=== PATIENT | male | born 1960 | race Caucasian/White ===

== ENCOUNTER 2017-03-02 21:42 | Inpatient (IN) | payer BC, OTHER ==
[~2017-03-02] VITALS: Ht 182.9 cm; Wt 106.4 kg
[~2017-03-02 21:42] MED LIST: AMLO-218 PO; ASPI81TA3 PO; CLOP75TA27 PO; TIOT18CA IH
[2017-03-02] MEDS ORDERED: ASPIRIN 325 MG TAB PO STA (21:59)
[2017-03-02 22:32] LABS: ADD SCAN DIFF NO
[2017-03-02] MEDS ORDERED: LANT3I SC (22:33)
[2017-03-02 22:36] LABS: BASOPHIL # 0.1 10^3/ul (0.0-0.1); BASOPHILS % 0.7 % (0.0-2.0); EOSINOPHILS # 0.2 10^3/ul (0.0-0.5); EOSINOPHILS % 2.5 % (0.0-7.0); HEMATOCRIT 40.1 % (42.0-52.0); HEMOGLOBIN 13.3 g/dl (14.0-18.0); LYMPHOCYTES # 2.9 10^3/ul (0.8-2.9); LYMPHOCYTES % 39.1 % (15.0-51.0); MEAN CORPUSCULAR HEMOGLOBIN 31.1 pg (29.0-33.0); MEAN CORPUSCULAR HGB CONC 33.2 g/dl (32.0-37.0); MEAN CORPUSCULAR VOLUME 93.9 fl (82.0-101.0); MEAN PLATELET VOLUME 9.8 fl (7.4-10.4); MONOCYTE # 0.7 10^3/ul (0.3-0.9); MONOCYTES % 9.3 % (0.0-11.0); NEUTROPHIL # 3.5 10^3/ul (1.6-7.5); NEUTROPHILS % 47.7 % (39.0-77.0); PLATELET COUNT 258 10^3/UL (140-415); RED BLOOD COUNT 4.27 10^6/ul (4.70-6.10); RED CELL DISTRIBUTION WIDTH 13.8 % (11.5-14.5); WHITE BLOOD COUNT 7.3 10^3/ul (4.8-10.8)
--- NOTE | 2017-03-02 22:53 | RADRPT ---
PROCEDURE: XR Chest. CLINICAL INDICATION: Chest pain TECHNIQUE: Single frontal chest x-ray. COMPARISON: 05/25/2014 FINDINGS: Benign chronic changes are seen scattered throughout the lungs. Heart size is enlarged. Mild centr al vascular congestion is seen. Left chest single lead defibrillator is noted. There is no evidenc e for pneumothorax. The surrounding osseous structures are unremarkable. IMPRESSION: 1. Cardiomegaly with single lead left chest defibrillator. 2. Mild central vascular congestion. 3. Benign chronic changes scattered throughout the lungs. RPTAT: HMJB .Giovanni Wright MD, Date Time Electronically viewed and signed by .Giovanni Wright MD, on 03/02/2017 22:53 .B/
[2017-03-02] MEDS ORDERED: NITROGLYCERIN (SL) 0.4 MG TAB SL ONE (23:00)
[2017-03-02 23:05] LABS: INR 1.05; PROTIME 13.7 Sec (12.2-14.2); PT RATIO 1.1
[2017-03-02 23:12] LABS: ANION GAP 10 (8-16); BLOOD UREA NITROGEN 22 mg/dl (7-20); CALCIUM 9.6 mg/dl (8.4-10.2); CARBON DIOXIDE 23 mmol/L (21-31); CHLORIDE 107 mmol/L (97-110); GLUCOSE 113 mg/dl (70-220); POTASSIUM 4.1 mmol/L (3.5-5.1); SODIUM 136 mmol/L (135-144)
[2017-03-02 23:24] LABS: TROPONIN-I < 0.012 ng/ml (0.00-0.12)
[2017-03-03] VITALS (11 sets, daily range): BP systolic 100–172; BP diastolic 56–102; PULSE 70–87; RESP 18–19; Ht 182.9 cm; Wt 106.4 kg
[2017-03-03] MEDS ORDERED: morphine 4 MG/ML VIAL IV STA (00:26)
--- NOTE | 2017-03-03 03:22 | ERA ---
ER Documentation Chief Complaint Date/Time DATE: 03/03/17 TIME: 03:19 Chief Complaint CP (PRESSURE) X 3 HRS, REPRODUCEABLE W/COUGH (6 MONTHS) HPI 48-year-old male with a history of 3 stents, ICD, previous heart attack presents with pressure-like left-sided chest pressure 3 hours coming by shortness of breath. No radiation no nausea and vomiting. Pain is worse when he takes a deep breath or pushes on it. ROS All systems reviewed and are negative except as per history of present illness. Medications Home Meds Reported Medications Insulin Glargine* (Lantus*) 100 Unit/Ml Soln, SC DAILY, #1 VIAL 03/02/17 Tiotropium [place]* (Spiriva*) 18 Mcg Cap.w.dev, 1 INH IH BID, EA 05/23/14 Clopidogrel Bisulfate (Clopidogrel) 75 Mg Tablet, 75 MG PO DAILY, TAB 05/23/14 Aspirin (Aspirin) 81 Mg Chew, 81 MG PO DAILY, TAB.CHEW 05/23/14 Amlodipine Besylate* (Norvasc*) 10 Mg Tablet, 10 MG PO DAILY 02/09/12 Allergies Allergies: Coded Allergies: No Known Allergy (Unverified , 05/22/14) PMhx/Soc History of Surgery: Yes (AICD 2 MOS AGO) Anesthesia Reaction: No Hx Neurological Disorder: Yes Hx Respiratory Disorders: No Hx Cardiac Disorders: Yes (hx mi 1987 WITH 3 STENTS, HTN, HI CHO) Hx Psychiatric Problems: No Hx Miscellaneous Medical Probl: Yes (GERD, DM1) Hx Alcohol Use: Yes (occassional) Hx Substance Use: No Hx Tobacco Use: Yes (1 pack/day QUIT LAST 01/2014) Smoking Status: Former smoker Physical Exam Vitals Vital Signs Date Time Temp Pulse Resp B/P Pulse Ox O2 Delivery O2 Flow Rate FiO2 03/03/17 02:29 69 19 154/98 100 Nasal Cannula 3.0 03/02/17 23:30 71 24 137/83 99 Nasal Cannula 3.0 03/02/17 22:01 Nasal Cannula 3 03/02/17 21:50 98.2 88 17 118/82 96 Physical Exam Const: [] Mild distress appears uncomfortable Head: Atraumatic Eyes: Normal Conjunctiva ENT: Normal External Ears, Nose and Mouth. Neck: Full range of motion..~ No meningismus. Resp: Clear to auscultation bilaterally Cardio: Regular rate and rhythm, no murmurs Abd: Soft, non tender, non distended. Normal bowel sounds Skin: No petechiae or rashes Back: No midline or flank tenderness Ext: No cyanosis, or edema, reproducible chest pain on palpation of less chest Neur: Awake and alert and oriented 3, no focal deficits Psych: Normal Mood and Affect Result Diagram: 03/02/17222403/02/175 Results 24 hrs Laboratory Tests Test 03/02/17 22:25 White Blood Count 7.310^3/ul Red Blood Count 4.2710^6/ul Hemoglobin 13.3g/dl Hematocrit 40.1% Mean Corpuscular Volume 93.9fl Mean Corpuscular Hemoglobin 31.1pg Mean Corpuscular Hemoglobin Concent 33.2g/dl Red Cell Distribution Width 13.8% Platelet Count 09835^3/UL Mean Platelet Volume 9.8fl Neutrophils % 47.7% Lymphocytes % 39.1% Monocytes % 9.3% Eosinophils % 2.5% Basophils % 0.7% Nucleated Red Blood Cells % 0.0/100WBC Neutrophils # 3.510^3/ul Lymphocytes # 2.910^3/ul Monocytes # 0.710^3/ul Eosinophils # 0.210^3/ul Basophils # 0.110^3/ul Nucleated Red Blood Cells # 0.010^3/ul Prothrombin Time 13.7Sec Prothrombin Time Ratio 1.1 INR International Normalized Ratio 1.05 Activated Partial Thromboplast Time 31.0Sec Sodium Level 136mmol/L Potassium Level 4.1mmol/L Chloride Level 107mmol/L Carbon Dioxide Level 23mmol/L Anion Gap 10 Blood Urea Nitrogen 22mg/dl Creatinine 0.90mg/dl Glucose Level 113mg/dl Calcium Level 9.6mg/dl Troponin I < 0.012ng/ml Current Medications Medications (Trade) Dose Ordered Sig/Elvira Route PRN Reason Start Time Stop Time Status Last Admin Dose Admin Aspirin (Aspirin) 325 mg ONCE STAT PO 03/02/17 21:59 03/02/17 22:00 DC 03/02/17 22:08 Nitroglycerin (Nitroglycerin (Sl Tab) 0.4 Mg) 1 tab ONCE ONCE SL 03/02/17 23:00 03/02/17 23:01 DC Morphine Sulfate (morphine) 4 mg ONCE STAT IV 03/03/17 00:26 03/03/17 00:27 DC 03/03/17 00:46 Procedures/MDM 56-year-old male with multiple risk factors with ongoing chest pain is temporarily relieved by nitroglycerin. Patient also has T-wave inversions in inferolateral leads of his EKG. Patient has not had any testing for the last 2 years since he was admitted for acute coronary syndrome and states that his doctor has been meaning to get him to take a stress test. Was given a 325 mg aspirin as well as 2 nitroglycerin tabs which temporarily helped the pain. His ongoing pain was given 4 mg of morphine which helped that the pain. Believe the patient is high risk for acute coronary syndrome and will be admitted for trending of his troponins as well as advanced cardiac testing. I spoke with who will be admitting EKG interpretation: Normal sinus rhythm rate of 84, T-wave inversions in inferolateral leads, normal axis. fire protection designer interpretation: Normal sinus rhythm without arrhythmia Chest x-ray interpretation: I see no acute process, no widened mediastinum, no pneumothorax, no diffuse pulmonary edema, no fracture Departure Diagnosis: Primary Impression: Chest pain Additional Impression: Acute electrocardiogram changes Condition: Stable TAILUZMA March 03, 2017 03:22
[2017-03-03] MEDS ORDERED: NITROGLYCERIN (SL) 0.4 MG TAB SL PRN (04:30)
[2017-03-03] MEDS ORDERED: ONDANSETRON 4 MG INJ IV PRN (04:30)
[2017-03-03] MEDS ORDERED: ACETAMINOPHEN 325 MG TAB PO PRN (04:30)
[2017-03-03] MEDS ORDERED: morphine 10 MG INJ IM PRN (04:30)
[2017-03-03] MEDS ORDERED: GLUCAGON 1 MG INJ IM PRN (05:00)
[2017-03-03] MEDS ORDERED: DEXTROSE 50% 50 ML SYRINGE IV PRN ×2 (05:00)
[2017-03-03] MEDS ORDERED: GLUCOSE GEL 15 GRAM TUBE PO PRN ×2 (05:00)
[2017-03-03] MEDS ORDERED: GLUCOSE GEL 15 GRAM TUBE BUCCAL PRN (05:00)
[2017-03-03] MEDS: PANTOPRAZOLE (EC) 40 MG TAB PO SCH (06:16)
[2017-03-03 06:42] LABS: ADD SCAN DIFF NO
[2017-03-03 06:54] LABS: BASOPHIL # 0.1 10^3/ul (0.0-0.1); BASOPHILS % 0.6 % (0.0-2.0); EOSINOPHILS # 0.3 10^3/ul (0.0-0.5); EOSINOPHILS % 3.4 % (0.0-7.0); HEMATOCRIT 42.7 % (42.0-52.0); HEMOGLOBIN 14.1 g/dl (14.0-18.0); LYMPHOCYTES # 3.3 10^3/ul (0.8-2.9); LYMPHOCYTES % 39.4 % (15.0-51.0); MEAN CORPUSCULAR HEMOGLOBIN 31.1 pg (29.0-33.0); MEAN CORPUSCULAR VOLUME 94.1 fl (82.0-101.0); MEAN PLATELET VOLUME 10.4 fl (7.4-10.4); MONOCYTE # 0.7 10^3/ul (0.3-0.9); MONOCYTES % 8.7 % (0.0-11.0); NEUTROPHILS % 47.4 % (39.0-77.0); PLATELET COUNT 242 10^3/UL (140-415); RED BLOOD COUNT 4.54 10^6/ul (4.70-6.10); RED CELL DISTRIBUTION WIDTH 13.9 % (11.5-14.5); WHITE BLOOD COUNT 8.3 10^3/ul (4.8-10.8)
[2017-03-03 07:08] LABS: TROPONIN-I 0.015 ng/ml (0.00-0.12)
[2017-03-03 07:16] LABS: CK-MB 1.38 ng/ml (0.0-2.4)
[2017-03-03] MEDS: INSULIN ASPART [NOVOLOG] 3 ML PEN SC SCH ×6 (07:46→21:00)
[2017-03-03 07:53] LABS: ALBUMIN 4.1 g/dl (3.3-4.9); ALBUMIN/GLOBULIN RATIO 1.28; BILIRUBIN,INDIRECT 0.1 mg/dl (0-1.1); BILIRUBIN,TOTAL 0.1 mg/dl (0.2-1.3); CALCIUM 9.4 mg/dl (8.4-10.2); CHOL/HDL RATIO 7.2 RATIO; CREATININE 0.8 mg/dl (0.61-1.24); MAGNESIUM 2.1 mg/dl (1.7-2.5); PHOSPHORUS 4.5 mg/dl (2.5-4.9); POTASSIUM 4.2 mmol/L (3.5-5.1); TOTAL PROTEIN 7.3 g/dl (6.1-8.1)
[2017-03-03] MEDS: ASPIRIN 81 MG TAB PO SCH (08:23)
[2017-03-03] MEDS: CLOPIDOGREL 75 MG TAB PO SCH (08:23)
[2017-03-03] MEDS ORDERED: AMLODIPINE 10 MG TAB PO SCH (09:00)
[2017-03-03] MEDS: TIOTROPIUM 18 MCG CAPSULE INHA DEV INH SCH ×2 (09:40→21:26)
[2017-03-03 10:13] LABS: CREATINE KINASE 103 IU/L (23-200)
[2017-03-03 10:38] LABS: TROPONIN-I < 0.012 ng/ml (0.00-0.12)
[2017-03-03] MEDS ORDERED: ALBUTEROL 0.083% (NEB) 2.5 MG/3 ML AMP HHN PRN (11:30)
[2017-03-03] MEDS: ENOXAPARIN 40 MG/0.4 ML SYG SC SCH (11:55)
[2017-03-03] MEDS: SALMETEROL/FLUTICASONE 250/50 INHA INH SCH ×2 (12:22→21:29)
[2017-03-03] MEDS: NICOTINE (21 MG/24 HR) PATCH TRANSDERM SCH (12:23)
[2017-03-03 12:37] LABS: CREATINE KINASE 115 IU/L (23-200)
[2017-03-03 12:58] LABS: TROPONIN-I < 0.012 ng/ml (0.00-0.12)
--- NOTE | 2017-03-03 13:37 | HP ---
DATE OF ADMISSION: 03/03/2017 PREVIOUS RETAIL CUSTOMER SERVICE REPRESENTATIVE: Dr. Pulido. PRIMARY CARE PHYSICIAN: Unknown. CHIEF COMPLAINT ON ADMISSION: Chest pain. HISTORY OF PRESENT ILLNESS: This is a 56-year-old male with previous history of severe coronary artery disease, status post stenting with [address], also status post defibrillator, who recently started smoking again over the past year, noncompliant diabetic versus lack of education, who presented to the emergency department with complaint of chest pain. The patient reports that for the past 2 days he has been having intermittent, sharp chest pain to the left with some shortness of breath. No nausea, no vomiting, no dizziness. No recent increase or noted lower extremity edema. The patient apparently was due for a stress test as an outpatient and it is unclear if he scheduled it or not. His cardiac enzymes were negative x2 so far. EKG in the emergency department showing normal sinus rhythm. He is not paced currently with old inferior infarct and possible lateral ischemia based on the EKG, but no acute ST or T- wave abnormalities of concern. The patient has restarted smoking again a year ago. He smokes up to a pack a day and he his diabetes mellitus is likely to be uncontrolled as he does not seem to understand how to take his insulin. He claims that he checks his blood sugar and takes 1 to 2 units. He does not know how much Lantus he is taking and it looks like the whole family does not understand the difference between long-acting insulin and short-acting insulin. It is unclear if he is compliant with diet even at this point. The daughter also reports that occasionally he has episodes of binge drinking when he just drinks a whole bottle of cognac. He is currently hemodynamically stable and respiratory-cha he is stable. He is afebrile. He denies any previous fevers or acute infection. His chest x-ray is fairly stable with some possible vascular congestion. He has been admitted to telemetry for rule out acute coronary syndrome. Dr. Madrid who is covering for Dr. Pulido will be seeing the patient today. ALLERGIES: NO KNOWN ALLERGIES. PAST MEDICAL HISTORY: 1. Severe coronary artery disease, status post stenting x3. 2. S/p defibrillator . 3. Diabetes mellitus. 4. Morbid obesity. 5. Tobacco use. 6. Alcohol use. 7. Hypertension. PAST SURGICAL HISTORY: 1. Status post abdominal surgery remotely. 2. Status post stent placement. 3. Status post pacemaker. REVIEW OF SYSTEMS: As per HPI. OUTPATIENT MEDICATIONS: 1. Spiriva 1 puff inhaled twice daily. 2. Plavix 75 mg daily. 3. Norvasc 10 mg p.o. daily. 4. Aspirin 81 mg daily. 5. Lantus, unknown dosing. PHYSICAL EXAMINATION VITAL SIGNS: Temperature was 97.8, heart rate of 70s, sinus rhythm, blood pressure 142/85. Patient is satting 100% on 2 liters nasal cannula. GENERAL: He is alert and oriented x4. He is primarily Turkish speaking. He is in no acute distress. The daughter at the bedside and is translating. HEENT: Pupils are equally round and reactive to light. Extraocular muscles are intact. Anicteric sclerae. NECK: No JVD, no thyromegaly noted. HEART: Regular rate and rhythm. No murmur, rubs, or gallops. He is not paced currently. ABDOMEN: Soft, nontender, nondistended. Bowel sounds are present. EXTREMITIES: No edema, clubbing or cyanosis. NEUROLOGIC: Grossly intact. CHEST: He does have a pacemaker in place and there is no wheezing on exam and good air movement. LABORATORY DATA: White blood cell count is 8.3, hemoglobin 14.1, hematocrit 42.7, platelet count of 242. Chemistry with a sodium of 136, potassium 4.2, chloride 108, bicarbonate 21, BUN 19, creatinine 0.80, glucose of 116. A1c of 5.8, calcium of 9.4, phosphorus 4.5, magnesium 2.1, AST 41, ALT 84, alkaline phosphatase 50, troponins less than 0.012 and negative x2 so far. LFTs with cholesterol of 231. BNP of 171. INR 1.05. PT 13.7, PTT 31.0. EKG again showed normal sinus rhythm. Patient is not being paced currently. There are some signs of old infarcts, mainly, but no acute ST or T-wave abnormalities. RADIOLOGICAL DATA: Chest x-ray shows cardiomegaly with a single lead left chest defibrillator, mild central vascular congestion, benign chronic changes scattered throughout the lungs, likely COPD. ASSESSMENT AND PLAN: This is a 56-year-old male with: 1. Chest pain with known coronary artery disease. He apparently actually has a defibrillator in place. Awaiting repeat echocardiogram at this point. Cardiac enzymes have been negative x2 but he is being ruled out. Dr. Madrid will see the patient. He is already on aspirin and Plavix will be continued. He is also on Norvasc for blood pressure control; however, depending on his ejection fraction, he may benefit actually from carvedilol. Follow up further cardiology recommendations. 2. Diabetes mellitus. His A1c came back at 5.8 actually, therefore, we will monitor him closely. I have resumed his Lantus based on his weight at 20 units at bedtime. Will, however, monitor his blood sugar closely. I also placed him on premeal insulin. 3. Hypertension. We will readjust his blood pressure medication depending on the echocardiogram and cardiology recommendation. 4. Tobacco use with probable chronic obstructive pulmonary disease. He is already on Spiriva. We will put him on Advair and add some nebulizers as needed with albuterol. 5. Occasional alcohol overuse. I have counseled the patient. DISPOSITION:Cardiology evaluation pending possible stress test if needed. Prophylaxis. Protonix for GI prophylaxis and will add Lovenox for DVT prophylaxis. Dictated By: CLAY SEGURA/CESILIA Conf#: [id number] DID#: [id number] JUDITH
[2017-03-03] MEDS: ISOSORBIDE MONONITRATE(SR)30 MG TAB PO SCH (15:48)
[2017-03-03] MEDS: METOPROLOL 25 MG TAB PO SCH ×2 (15:48→21:27)
--- NOTE | 2017-03-03 17:00 | RADRPT ---
Echocardiogram Report Patient Name: RAYRAY BENEDICT Gender: Male Date: 1960 Study Date: 03-Mar-2017 Individual Small Group Instructor: NIKUNJ Location: I Ref. Physician: EPIFANIO HERNANDEZ Quality: Technically Difficult Study Procedures: Transthoracic echocardiogram with 2D, M-Mode, and Doppler examination, no subcostal images. Indications: Chest Pain. 2D/M Mode Doppler Measurement Value Normal Ranges Measurement Value Normal Ranges AoR Diam MM 3.3 cm AV Peak Eddy 1.0 m/sec LVIDd 2D 5.0 3.5 - 5.6 cm AV Peak PG 4.1 mmHg LVIDs 2D 3.6 2.1 - 4.1 cm LVOT Peak Eddy 0.7 m/sec LVPWd 2D 1.2 0.6 - 1.1 cm LVOT Peak PG 1.9 mmHg IVSd 2D 1.7 0.6 - 1.1 cm MV E Peak Eddy 0.5 m/sec EDV 2D 116.8 cm3 MV A Peak Dedy 0.8 m/sec ESV 2D 46.4 cm3 MV E/A 0.7 LA Dimen 2D 3.7 2.3 - 4.0 cm MV Decel Time 197 msec MV Decel Ward 3 MV E/A 0.7 PV Peak Eddy 1.2 m/sec PV Peak PG 6.0 mmHg Findings Left Ventricle: Normal left ventricular cavity size. Mild concentric left ventricular hypertrophy. Ejection fraction is visually estimated at 50 %. Tissue Doppler/Mitral Doppler indices are consistent with impaired relaxation (Stage I diastolic dysfunction). E/E`=6. These segments of the LV are akinetic apical septum segment, Apical inferior segment and apical anterior segment. Right Ventricle: Normal right ventricular size. Normal right ventricular systolic function. Linear artifact in right ventricle suggestive of catheter, pacer lead, or ICD lead. Left Atrium: The left atrium is normal in size. Right Atrium: The right atrium is normal in size. Atrial Septum: Not well visualized. Mitral Valve: Normal appearance and function of the mitral valve with trace physiologic regurgitation. Aortic Valve: Normal appearance of the aortic valve. No significant aortic stenosis or insufficiency. Tricuspid Valve: Tricuspid valve not well visualized. No evidence of obvious tricuspid regurgitation. Pulmonic Valve: Normal pulmonic valve appearance. No evidence of pulmonic regurgitation. Pericardium: Normal pericardium with no significant pericardial effusion. Aorta: Normal aortic root. IVC: The IVC is not well visualized. Pulmonary Artery: Normal pulmonary artery size. Conclusions Normal left ventricular cavity size. Mild concentric left ventricular hypertrophy. Ejection fraction is visually estimated at 50 %. Tissue Doppler/Mitral Doppler indices are consistent with impaired relaxation (Stage I diastolic dysfunction). These segments of the LV are akinetic apical septum segment, Apical inferior segment and apical anterior segment. Normal right ventricular size. Normal right ventricular systolic function. Linear artifact in right ventricle suggestive of pacer lead, or ICD lead. Normal appearance and function of the mitral valve with trace physiologic regurgitation. Normal appearance of the aortic valve. No significant aortic stenosis or insufficiency. Tricuspid valve not well visualized. No evidence of obvious tricuspid regurgitation. Normal pericardium with no significant pericardial effusion. Electronically Signed By: Tadeo Madrid 03-Mar-2017 16:59:36 -0700 Patient Name: RAYRAY BENEDICT Study Date: 03-Mar-2017 [id number]
--- NOTE | 2017-03-03 18:18 | CONS ---
DATE OF ADMISSION: 03/03/2017 DATE OF CONSULTATION: 03/03/2017 TYPE OF CONSULTATION: Cardiology. Thank you, Dr. Alex, for cardiology consultation. REASON FOR CONSULTATION: Chest pain. HISTORY OF PRESENT ILLNESS: The patient is a 56-year-old gentleman who comes in with on and off lluvia st pain for the past few days associated with shortness of breath and dry cough. Denies orthopnea, PND. Denies palpitations, dizziness or syncope. The patient has history of coronary artery disease , status post IA, stent, status post stenting in 2011 and 2013. He had a pacemaker implanted in for sick sinus syndrome. Denies abdominal pain, nausea or vomiting. Denies fever, chills or mariama rs. Denies lower extremity edema. PAST MEDICAL HISTORY: Significant for: 1. Coronary artery disease, status post IA, status post stenting in 2011 and 2013. 2. Sick sinus syndrome, status post permanent pacemaker implantation in 2013. 3. Obesity. 4. Hypertension. 5. Diabetes mellitus. 6. Dyslipidemia. 7. Tobacco abuse. 8. Alcohol abuse. PAST SURGICAL HISTORY: Significant for exploratory laparotomy. SOCIAL HISTORY: He is a smoker and takes alcohol. Denies recreational drugs. ALLERGIES: NONE. CURRENT MEDICATIONS: Include: 1. Spiriva. 2. Advair inhaler. 3. Norvasc. 4. Aspirin. 5. Plavix. 6. Lovenox. 7. Nicotine patch. 8. Protonix. 9. Insulin. REVIEW OF SYSTEMS: Is unremarkable except that mentioned in the HPI. PHYSICAL EXAMINATION: VITAL SIGNS: Temperature is 97.8, heart rate of 78, blood pressure 146/92 mmHg, breathing at 18 and saturating 98%. GENERAL: Patient is awake, alert, oriented, in no apparent distress. NECK: No JVD or carotid bruit. CARDIOVASCULAR: Regular rate and rhythm. No murmur, rub or gallop. LUNGS: Clear to auscultation. ABDOMEN: Soft. Bowel sounds are present. There is no organomegaly. EXTREMITIES: No pedal edema. Pedal pulses felt bilaterally. Review of 12-lead EKG shows normal sinus rhythm with a ventricular rate of 75 beats per minute with normal WA, normal QRS and normal QT intervals with nonspecific ST-T wave changes with new T-wave in versions in lead II, III, aVF. Chest x-ray shows cardiomegaly with mild vascular congestion. LABORATORY DATA: WBC 8.3, hemoglobin 14.1, hematocrit 42.7 with a platelet of 242, sodium ____, pot assium 4.2, chloride 108, CO2 of 21, BUN 19, creatinine 0.8 with a BNP 171. Troponin x3 is negative . ASSESSMENT AND PLAN: A 56-year-old gentleman with: 1. Atypical chest pain. 2. History of coronary artery disease, status post myocardial infarction, status post stenting in and 2013. 3. Sick sinus syndrome, status post permanent pacemaker implantation in 2013. 4. Hypertension. 5. Dyslipidemia. 6. Diabetes mellitus. 7. Morbid obesity. Review of 12-lead EKG shows T-wave inversion in lead II, III, aVF which are new compared to the prev ious EKG. See EKG. In addition, he is hypertensive. However, has been ruled out for acute coronary syndrome with serial negative troponins. RECOMMENDATIONS: 1. In the presence of new T-wave inversion in inferior leads, recommend a Lexiscan prior to dischar ge. 2. Started on Imdur. 3. Started on metoprolol. 4. Continue amlodipine. 5. Continue insulin. 6. Continue nicotine. 7. Continue nebs as scheduled. 8. Echocardiogram to assess for segmental wall motion abnormality and to rule out for pulmonary hyp ertension and pericardial disease. Dictated By: ELISHA CARR MD SR/NTS Conf#: [id number] DID#: [id number]
[2017-03-03] MEDS ORDERED: INSULIN GLARGINE [LANtus] 3 ML PEN SC SCH (21:00)
[2017-03-04 00:19] VITALS: PULSE 55
[2017-03-04] MEDS ORDERED: ACCU-CHEK XX SCH ×2 (02:00)
[2017-03-04 04:12] VITALS: BP 106/60; RESP 19
[2017-03-04 04:27] VITALS: PULSE 50
[2017-03-04] MEDS: PANTOPRAZOLE (EC) 40 MG TAB PO SCH (06:00)
[2017-03-04 07:30] VITALS: BP 112/68; RESP 18
[2017-03-04] MEDS: INSULIN ASPART [NOVOLOG] 3 ML PEN SC SCH ×4 (07:47→14:01)
[2017-03-04 08:46] VITALS: PULSE 64
[2017-03-04] MEDS: SALMETEROL/FLUTICASONE 250/50 INHA INH SCH (09:56)
[2017-03-04] MEDS: TIOTROPIUM 18 MCG CAPSULE INHA DEV INH SCH (09:57)
[2017-03-04] MEDS: ENOXAPARIN 40 MG/0.4 ML SYG SC SCH (10:06)
--- NOTE | 2017-03-04 11:38 | PN ---
Date/Time of Note Date/Time of Note DATE: 03/04/17 TIME: 11:31 Assessment/Plan VTE Prophylaxis VTE Prophylaxis Intervention: LMWH Lines/Catheters IV [facility]from [facility] [place]ine Lock Urinary Cath still in place: No Assessment/Plan Assessment/Plan 56-year-old male with: 1. Chest pain with known coronary artery disease, S/p defibrillator. Thuan negative Stress test this AM Repeat echocardiogram stable Imdur and metoprolol added per Cardiology, Dr Pulido following F/u further cardio recs post stress results 2. Diabetes mellitus. His A1c came back at 5.8 actually, Resume home insulin dosage at discharge 3. Hypertension. 4. Tobacco use with probable chronic obstructive pulmonary disease. Continue Spiriva, along with Advair and tobacco cessation 5. Occasional alcohol overuse. I have counseled the patient to quit. Prophylaxis. Protonix for GI prophylaxis and Lovenox for DVT prophylaxis. DISPOSITION: Stress test this AM, d/c planning pending results. Subjective 24 Hr Interval Summary Free Text/Dictation Patient doing Ok and remains stable Cardiac enzymes negative Stress test ongoing this AM Exam/Review of Systems Vital Signs Vitals Vital Signs Date Time Temp Pulse Resp B/P Pulse Ox O2 Delivery O2 Flow Rate FiO2 03/04/17 08:46 64 03/04/17 07:38 Nasal Cannula 2.0 03/04/17 07:30 98.0 18 112/68 98 Intake and Output 03/03/17 03/03/17 03/04/17 15:00 23:00 07:00 Intake Total 720 ml 450 ml Balance 720 ml 450 ml Exam Constitutional: alert, obese, oriented, well developed Respiratory: clear to auscultation, normal air movement Cardiovascular: nl pulses, regular rate and rhythm Gastrointestinal: non-tender, soft Musculoskeletal: nl extremities to inspection Extremities: normal pulses, other (no edema, clubbign or cyanosis ) Neurological: SORTER LUMBER STRAIGHTENER II-XII intact, nl mental status, nl speech, nl strength Results Result Diagram: 03/03/1714 03/03/1714 Results 24 hrs Laboratory Tests Test 03/03/17 11:51 03/03/17 12:08 03/03/17 17:24 03/03/17 17:55 Bedside Glucose 129 118 Creatine Kinase 115 Creatine Kinase Index 1.0 Creatinine Kinase MB (Mass) 1.20 Troponin I < 0.012 < 0.012 Test 03/03/17 21:16 03/04/17 00:10 03/04/17 02:14 03/04/17 06:29 Bedside Glucose 190 117 Troponin I < 0.012 < 0.012 Test 03/04/17 07:27 Bedside Glucose 111 Medications Medications Current Medications Amlodipine Besylate (Norvasc) 10 mg DAILY PO Last administered on 03/03/17 08: 24; Admin Dose 10 MG; Start 03/03/17 at 09:00 Aspirin (Aspirin) 81 mg DAILY PO Last administered on 03/03/17 08:23; Admin Dose 81 MG; Start 03/03/17 at 09:00 Clopidogrel Bisulfate (plaVIX) 75 mg DAILY PO Last administered on 03/03/17 08 :23; Admin Dose 75 MG; Start 03/03/17 at 09:00 Insulin Glargine (Lantus) 20 unit QHS SC ; Start 03/03/17 at 21:00 Tiotropium [place] (Spiriva) 1 inh BID INH Last administered on 03/04/17 09:57 ; Admin Dose 1 INH; Start 03/03/17 at 09:00 Diagnostic Test (Pha) (Accu-Chek) 1 ea 02 XX Last administered on 03/04/17 02: 17; Admin Dose 1 EA; Start 03/04/17 at 02:00 Nitroglycerin (Nitroglycerin (Sl Tab) 0.4 Mg) 1 tab Q5M PRN SL ANGINA; Start at 04:30 Morphine Sulfate (morphine) 2 mg Q4H PRN IM PAIN; Start 03/03/17 at 04:30 Acetaminophen (Tylenol Tab) 650 mg Q6H PRN PO PAIN AND OR ELEVATED TEMP; Start 03/03/17 at 04:30 Ondansetron HCl (Zofran Inj) 4 mg Q6H PRN IV NAUSEA AND/OR VOMITING; Start at 04:30 Pantoprazole (Protonix Tab) 40 mg DAILY@06 PO Last administered on 03/03/17 06 :16; Admin Dose 40 MG; Start 03/03/17 at 06:00 Miscellaneous Information 1 ea NOTE XX ; Start 03/03/17 at 05:00 Glucose (Glutose) 15 gm Q15M PRN PO DECREASED GLUCOSE; Start 03/03/17 at 05:00 Glucose (Glutose) 22.5 gm Q15M PRN PO DECREASED GLUCOSE; Start 03/03/17 at 05: 00 Dextrose (D50w Syringe) 25 ml Q15M PRN IV DECREASED GLUCOSE; Start 03/03/17 at 05:00 Dextrose (D50w Syringe) 50 ml Q15M PRN IV DECREASED GLUCOSE; Start 03/03/17 at 05:00 Glucagon (Glucagen) 1 mg Q15M PRN IM DECREASED GLUCOSE; Start 03/03/17 at 05:00 Glucose (Glutose) 15 gm Q15M PRN BUCCAL DECREASED GLUCOSE; Start 03/03/17 at 05 :00 Enoxaparin Sodium (Lovenox) 40 mg DAILY SC Last administered on 03/04/17 10:06 ; Admin Dose 40 MG; Start 03/03/17 at 11:30 Nicotine (Nicoderm 21 Mg/ 24hr) 1 patch DAILY TRANSDERM Last administered on 12:23; Admin Dose 1 PATCH; Start 03/03/17 at 11:30 Salmeterol Xinafoate/ Fluticasone (Advair 250/50 Diskus) 1 inh BID INH Last administered on 03/04/17 09:56; Admin Dose 1 INH; Start 03/03/17 at 11:30 Isosorbide Mononitrate (Imdur) 30 mg DAILY PO Last administered on 03/03/17 15 :48; Admin Dose 30 MG; Start 03/03/17 at 15:00 Metoprolol Tartrate (Lopressor) 25 mg BID PO Last administered on 03/03/17 21: 27; Admin Dose 25 MG; Start 03/03/17 at 15:00 CLAY HERNANDEZ March 04, 2017 11:38
[2017-03-04] MEDS ORDERED: REGADENOSON 0.4 MG/5 ML SYG ONE (11:48)
--- NOTE | 2017-03-04 12:26 | CONS ---
Date/Time of Note Date/Time of Note DATE: 03/04/17 TIME: 12:20 Assessment/Plan Assessment/Plan Chief Complaint/Hosp Course IMp: 1.Chest pain-assess for ACS 2.CHF- by cxr-would be systolic by prior echo acute on chronic 3.HTN 4.PPM/ICD 5. H/O cardiomyopathy with low EF 35% by prior echo. Now read as 50% by echo this admit from another cardioloist 6.+Tob 7.H/O stent 2011 for STEMI Recc: -Tele -serial ecg's -Continue asa/plavix -Ciontinue imdur/BB -Decrease dose of norvasc to allow patient to tolerate low dose ACEI after load reduction -Add low dose lasix diuresis Problems: Consultation Date/Type/Reason Admit Date/Time March 03, 2017 at 00:56 Initial Consult Date 03/03/2017 Type of Consultation: Cardiology Reason for Consultation Chest pain Referring Provider: CLAY HERNANDEZ Exam/Review of Systems Vital Signs Vitals Vital Signs Date Time Temp Pulse Resp B/P Pulse Ox O2 Delivery O2 Flow Rate FiO2 03/04/17 08:46 64 03/04/17 07:38 Nasal Cannula 2.0 03/04/17 07:30 98.0 18 112/68 98 Intake and Output 03/03/17 03/03/17 03/04/17 15:00 23:00 07:00 Intake Total 720 ml 450 ml Balance 720 ml 450 ml Exam Review of Systems: CONSTITUTIONAL: No fevers, chills. PULMONARY: No sob CARDIOVASCULAR: Intermittent chest pain GASTROINTESTINAL: No nausea/vomiting. GENITOURINARY: No hematuria/dysuria. MUSCULOSKELETAL: No myagias/arthalgias. PSYCHIATRIC: The patient denies depression. NEUROLOGIC: No weakness Constitutional: alert, oriented Psych: no complaints Head: normocephalic ENMT: mucosa pink and moist Neck: jvd (9 cm water), supple Respiratory: diminished breath sounds (at bases/B) Cardiovascular: regular rate and rhythm Gastrointestinal: non-tender, soft Musculoskeletal: muscle tone (Normal) Extremities: edema (No focal deficits) Neurological: other (No focal deficits) Results Result Diagram: 03/03/17 0514 03/03/17 0514 Results 24 hrs Laboratory Tests Test 03/03/17 17:24 03/03/17 17:55 03/03/17 21:16 03/04/17 00:10 Bedside Glucose 118 190 Troponin I < 0.012 < 0.012 Test 03/04/17 02:14 03/04/17 06:29 03/04/17 07:27 Bedside Glucose 117 111 Troponin I < 0.012 Medications Medications Current Medications Amlodipine Besylate (Norvasc) 10 mg DAILY PO Last administered on 03/03/17 08: 24; Admin Dose 10 MG; Start 03/03/17 at 09:00 Aspirin (Aspirin) 81 mg DAILY PO Last administered on 03/03/17 08:23; Admin Dose 81 MG; Start 03/03/17 at 09:00 Clopidogrel Bisulfate (plaVIX) 75 mg DAILY PO Last administered on 03/03/17 08 :23; Admin Dose 75 MG; Start 03/03/17 at 09:00 Insulin Glargine (Lantus) 20 unit QHS SC ; Start 03/03/17 at 21:00 Tiotropium [place] (Spiriva) 1 inh BID INH Last administered on 03/04/17 09:57 ; Admin Dose 1 INH; Start 03/03/17 at 09:00 Diagnostic Test (Pha) (Accu-Chek) 1 ea 02 XX Last administered on 03/04/17 02: 17; Admin Dose 1 EA; Start 03/04/17 at 02:00 Nitroglycerin (Nitroglycerin (Sl Tab) 0.4 Mg) 1 tab Q5M PRN SL ANGINA; Start at 04:30 Morphine Sulfate (morphine) 2 mg Q4H PRN IM PAIN; Start 03/03/17 at 04:30 Acetaminophen (Tylenol Tab) 650 mg Q6H PRN PO PAIN AND OR ELEVATED TEMP; Start 03/03/17 at 04:30 Ondansetron HCl (Zofran Inj) 4 mg Q6H PRN IV NAUSEA AND/OR VOMITING; Start at 04:30 Pantoprazole (Protonix Tab) 40 mg DAILY@06 PO Last administered on 03/03/17 06 :16; Admin Dose 40 MG; Start 03/03/17 at 06:00 Miscellaneous Information 1 ea NOTE XX ; Start 03/03/17 at 05:00 Glucose (Glutose) 15 gm Q15M PRN PO DECREASED GLUCOSE; Start 03/03/17 at 05:00 Glucose (Glutose) 22.5 gm Q15M PRN PO DECREASED GLUCOSE; Start 03/03/17 at 05: 00 Dextrose (D50w Syringe) 25 ml Q15M PRN IV DECREASED GLUCOSE; Start 03/03/17 at 05:00 Dextrose (D50w Syringe) 50 ml Q15M PRN IV DECREASED GLUCOSE; Start 03/03/17 at 05:00 Glucagon (Glucagen) 1 mg Q15M PRN IM DECREASED GLUCOSE; Start 03/03/17 at 05:00 Glucose (Glutose) 15 gm Q15M PRN BUCCAL DECREASED GLUCOSE; Start 03/03/17 at 05 :00 Enoxaparin Sodium (Lovenox) 40 mg DAILY SC Last administered on 03/04/17 10:06 ; Admin Dose 40 MG; Start 03/03/17 at 11:30 Nicotine (Nicoderm 21 Mg/ 24hr) 1 patch DAILY TRANSDERM Last administered on 12:23; Admin Dose 1 PATCH; Start 03/03/17 at 11:30 Salmeterol Xinafoate/ Fluticasone (Advair 250/50 Diskus) 1 inh BID INH Last administered on 03/04/17 09:56; Admin Dose 1 INH; Start 03/03/17 at 11:30 Isosorbide Mononitrate (Imdur) 30 mg DAILY PO Last administered on 03/03/17 15 :48; Admin Dose 30 MG; Start 03/03/17 at 15:00 Metoprolol Tartrate (Lopressor) 25 mg BID PO Last administered on 03/03/17 21: 27; Admin Dose 25 MG; Start 03/03/17 at 15:00 JUAN PABLO WATERS March 04, 2017 12:26
--- NOTE | 2017-03-04 13:09 | RADRPT ---
PROCEDURE: Lexiscan myocardial perfusion study CLINICAL INDICATION: 56 -year-old patient complaining of chest pain. TECHNIQUE: Lexiscan 0.4 mg intravenously separate acquisition gated myocardial perfusion SPECT usi ng Tc 99m Myoview 31.8 mCi intravenously at stress and Tc-99m Myoview, 10.6 mCi intravenously at res t was performed using the rest/stress sequence. Poststress Myoview SPECT images were obtained in th e supine position. COMPARISON: May 24, 2014 a FINDINGS: Perfusion images reveal an unchanged large size severe in degree nonreversible perfusion defect in t he apical, distal to mid anterior, distal to mid septal, inferior and inferolateral andrade. Lexiscan post stress gated SPECT images demonstrate no wall motion abnormalities. IMPRESSION: 1. The type and distribution of the scintigraphic abnormalities are most consistent with a large si ze nonreversible perfusion defect in the apical, distal to mid anterior, distal to mid anteroseptal, inferior and inferolateral andrade 2. Unchanged moderate hypokinesis of the left ventricle. 3. The left ventricle ejection fraction at stress is 24% (prior EF was 31%). RPTAT: HH .Hanny Regan MD, Date Time Electronically viewed and signed by .Hanny Regan MD, on 03/04/2017 13:08 .L/
[2017-03-04] MEDS: ASPIRIN 81 MG TAB PO SCH (13:56)
[2017-03-04] MEDS: CLOPIDOGREL 75 MG TAB PO SCH (13:56)
[2017-03-04] MEDS: ISOSORBIDE MONONITRATE(SR)30 MG TAB PO SCH (13:57)
[2017-03-04] MEDS: METOPROLOL 25 MG TAB PO SCH (13:58)
[2017-03-04] MEDS: NICOTINE (21 MG/24 HR) PATCH TRANSDERM SCH (13:58)
--- NOTE | 2017-03-04 14:23 | RADRPT ---
Vent Rate: 75 bpm RR Interval: 0 msec SD Interval: 174 msec QRS Duration: 114 msec QT Interval: 410 msec QTC Interval: 457 msec P-R-T [place]: 40 - 80 - 0 degrees Normal sinus rhythm Cannot rule out Inferior infarct , age undetermined Anterior infarct , age undetermined ST amp; T wave abnormality, consider lateral ischemia Abnormal ECG Electronically Signed By: Tony Sharma [id number]
--- NOTE | 2017-03-04 14:55 | PDOCDIS ---
Discharge Instructions CONDITION Patient Condition: Good HOME CARE INSTRUCTIONS: Diet Instructions: Low Fat /CholesterolSpecial Diet: ADA diet ACTIVITY: Activity Restrictions: No Restrictions FOLLOW UP/APPOINTMENTS Appointments Follow up with PCP within 1 week Follow up with Cardiology, Dr Pulido in 1 to 2 weeks CLAY HERNANDEZ March 04, 2017 14:55
[2017-03-04] MEDS ORDERED: METO-448 PO (14:58)
[2017-03-04] MEDS ORDERED: NICO1PAT6 TRANSDERM (14:58)
[2017-03-04] MEDS ORDERED: ISOS30TA5 PO (14:58)
[2017-03-04] MEDS ORDERED: AMLO-145 PO (14:58)
[2017-03-04] MEDS ORDERED: ADV25050 INH (14:58)
[2017-03-04] MEDS ORDERED: LISI2.5T59 PO (14:58)
[2017-03-04] MEDS ORDERED: ALBU18HF INHALATION (15:05)
[2017-03-04 15:51] VITALS: BP 130/73; RESP 18
--- NOTE | 2017-03-04 20:45 | CARRPT ---
DATE OF PROCEDURE: 03/04/2017 REASON FOR STRESS TESTING: Chest pain and ischemic cardiomyopathy, history of stents, assess for is chemia. BASELINE VITAL SIGNS AND ELECTROCARDIOGRAM: Pulse 76, blood pressure 167. Electrocardiogram reveal ed normal sinus rhythm, rate of 76, normal axis, normal intervals with inferior and lateral T-wave i nversions and biphasic T-wave abnormalities in anterior precordial leads. PROCEDURE: The patient underwent standard Lexiscan infusion protocol for 10 seconds followed by rad iotracer. The patient's test was stopped due to completion of protocol. Maximal achieved blood pre ssure during the test 115/77. Maximum heart rate during the test 96. ELECTROCARDIOGRAM FINDINGS: Patient did not develop new Lexiscan-induced ST ____ or PVCs. SYMPTOMS: The patient had no complaints of chest pain or shortness of breath during stress testing. IMPRESSION: 1. No Lexiscan-induced ST or T changes from baseline abnormalities diagnostic of cardiac ischemia. 2. No complaints of chest pain or shortness of breath during stress testing. 3. No documented premature ventricular contractions were reported. 4. Report of nuclear images to follow in separate dictation. Dictated By: JUAN PABLO ESTEVEZ/CESILIA Conf#: [id number] DID#: [id number] CC: CLAY HERNANDEZ MD;*End*
[2017-03-05] MEDS ORDERED: FUROSEMIDE 20 MG TAB PO SCH (09:00)
[2017-03-05] MEDS ORDERED: LISINOPRIL 5 MG TAB PO SCH (09:00)
[2017-03-05] MEDS ORDERED: AMLODIPINE 5 MG TAB PO SCH (09:00)
== END 2017-03-04 15:59 | disposition home or self-care (01) | DRG 302 ==
LOC: E/R 21:42 → TEL 03-03 00:56
PROVIDERS: ADMIT Internal Medicine; ATTEND Internal Medicine
DX: I25.10 Atherosclerotic heart disease of native coronary artery without angina pectoris (principal); I50.23 Acute on chronic systolic (congestive) heart failure; Z68.41 Body mass index [BMI] 40.0-44.9, adult; I42.9 Cardiomyopathy, unspecified; E66.01 Morbid (severe) obesity due to excess calories; R07.9 Chest pain, unspecified; I11.0 Hypertensive heart disease with heart failure; K21.9 Gastro-esophageal reflux disease without esophagitis; E78.5 Hyperlipidemia, unspecified; E11.9 Type 2 diabetes mellitus without complications; F10.10 Alcohol abuse, uncomplicated; Z79.02 Long term (current) use of antithrombotics/antiplatelets; Z79.82 Long term (current) use of aspirin; Z79.4 Long term (current) use of insulin; Z87.891 Personal history of nicotine dependence; Z95.810 Presence of automatic (implantable) cardiac defibrillator; Z95.5 Presence of coronary angioplasty implant and graft
CPT/HCPCS: 36415; 71010; 78452; 80048; 80053; 80061; 82550; 82553; 82962; 83036; 83735; 83880; 84100; 84484; 85025; 85610; 85730; 93005; 93017; 93306; 96374; A9500; A9505; J1650; J1815; J2270; J2785

== ENCOUNTER 2017-04-24 06:44 | Observation (INO) | payer OTHER ==
[2017-04-24] VITALS (16 sets, daily range): BP systolic 116–157; BP diastolic 73–101; PULSE 51–70; RESP 16–22; Ht 172.7 cm; Wt 106.3 kg
[~2017-04-24] VITALS: Ht 172.7 cm; Wt 106.3 kg
[~2017-04-24 06:44] MED LIST changes: +ADV25050 INH; +ALBU18HF INHALATION; +AMLO-145 PO; -AMLO-218 PO; +ISOS30TA5 PO; +LANT3I SC; +LISI2.5T59 PO; +METO-448 PO; +NICO1PAT6 TRANSDERM
--- NOTE | 2017-04-24 07:40 | RADRPT ---
PROCEDURE: XR Chest 1 View. CLINICAL INDICATION: Abnormal breath sounds, preop. TECHNIQUE: AP view of the chest was obtained. COMPARISON: March 02, 2017 FINDINGS: The heart size is within normal limits. Calcified atherosclerosis is noted in the aorta. Left-sided AICD has its lead over the heart and appears stable. Subsegmental atelectasis is identified at the right lung base. No consolidations are identified. No pneumothorax is seen. Osseous structures ar e intact. IMPRESSION: Calcified atherosclerosis in the aorta. Subsegmental atelectasis at the right lung base. RPTAT: AA .Renoz Medina MD, Date Time Electronically viewed and signed by .Renzo Medina MD, MD on 04/24/2017 07:40 .P/
[2017-04-24] MEDS ORDERED: IODIXANOL LOCM 100 ML BTL ONE ×2 (07:55→08:43)
[2017-04-24] MEDS ORDERED: ATEN-51 PO (07:55)
[2017-04-24] MEDS ORDERED: LIDOCAINE 1% (MDV) 20 ML INJ ONE ×2 (07:55→08:43)
[2017-04-24] MEDS ORDERED: FENTAnyl 50 MCG/ML VIAL ONE ×2 (07:56→08:43)
[2017-04-24] MEDS ORDERED: MIDAZOLAM 1 MG/ML 2 ML INJ ONE ×2 (07:56→08:43)
[2017-04-24] MEDS ORDERED: VERAPAMIL 5 MG INJ ONE ×2 (07:56→08:43)
[2017-04-24] MEDS ORDERED: NITROGLYCERIN (IC) 100 MCG/ML INJ ONE ×3 (07:56→09:56)
[2017-04-24 08:17] LABS: ADD SCAN DIFF NO
[2017-04-24 08:29] LABS: BASOPHILS % 0.7 % (0.0-2.0); EOSINOPHILS # 0.2 10^3/ul (0.0-0.5); HEMATOCRIT 40.8 % (42.0-52.0); HEMOGLOBIN 13.5 g/dl (14.0-18.0); LYMPHOCYTES # 2.1 10^3/ul (0.8-2.9); LYMPHOCYTES % 35.9 % (15.0-51.0); MEAN CORPUSCULAR HEMOGLOBIN 30.5 pg (29.0-33.0); MEAN CORPUSCULAR HGB CONC 33.1 g/dl (32.0-37.0); MEAN CORPUSCULAR VOLUME 92.1 fl (82.0-101.0); MEAN PLATELET VOLUME 9.5 fl (7.4-10.4); MONOCYTE # 0.7 10^3/ul (0.3-0.9); MONOCYTES % 12.5 % (0.0-11.0); NEUTROPHIL # 2.8 10^3/ul (1.6-7.5); NEUTROPHILS % 47.7 % (39.0-77.0); PLATELET COUNT 258 10^3/UL (140-415); RED BLOOD COUNT 4.43 10^6/ul (4.70-6.10); RED CELL DISTRIBUTION WIDTH 13.8 % (11.5-14.5); WHITE BLOOD COUNT 5.9 10^3/ul (4.8-10.8)
[2017-04-24] MEDS ORDERED: HEPARIN 1000 UNITS/ML 10 ML INJ ONE (08:43)
[2017-04-24 08:50] LABS: INR 0.99; PROTIME 13.1 Sec (12.2-14.2)
[2017-04-24 08:51] LABS: PARTIAL THROMBOPLASTIN TIME 31.7 Sec (25.0-35.0)
[2017-04-24 08:54] LABS: ALBUMIN 4.7 g/dl (3.3-4.9); ALBUMIN/GLOBULIN RATIO 1.74; BILIRUBIN,INDIRECT 0.2 mg/dl (0-1.1); BILIRUBIN,TOTAL 0.2 mg/dl (0.2-1.3); TOTAL PROTEIN 7.4 g/dl (6.1-8.1)
[2017-04-24 08:58] LABS: CALCIUM 9.8 mg/dl (8.4-10.2); CREATININE 0.84 mg/dl (0.61-1.24); POTASSIUM 4.3 mmol/L (3.5-5.1)
[2017-04-24] MEDS ORDERED: BIVALIRUDIN 250MG /NS 50 ML 50 ML IVPB ONE ×2 (10:19→11:01)
[2017-04-24] MEDS ORDERED: ASPIRIN 325 MG TAB ONE (10:49)
[2017-04-24] MEDS ORDERED: CLOPIDOGREL 300 MG TAB ONE (10:49)
[2017-04-24] MEDS ORDERED: ONDANSETRON 4 MG INJ IV PRN (11:30)
[2017-04-24] MEDS ORDERED: morphine 4 MG/ML VIAL IV PRN (11:30)
[2017-04-24] MEDS ORDERED: AL HYDROX/MG HYDROX/SIMETH 30 ML CUP PO PRN (11:30)
[2017-04-24] MEDS ORDERED: OXYCODONE/ACETAMINOPHEN (5/325) TAB PO PRN (11:30)
[2017-04-24] MEDS ORDERED: ACETAMINOPHEN 325 MG TAB PO PRN (11:30)
[2017-04-24] MEDS ORDERED: ZOLPIDEM 5 MG TAB PO PRN (11:30)
--- NOTE | 2017-04-24 11:35 | OPR ---
Date/Time of Note Date/Time of Note DATE: 04/24/17 TIME: 11:25 Operative Report Procedure Date: Apr 24, 2017 Preoperative Diagnosis chest pain, cad Postoperative Diagnosis obstructive cad s/p PTCA/stent x 1 to LAD and x 1 to diagonal Operation Performed 1.[facility] 2.Coronary angiogram 3.Attempted PTCA of LUMBER MARKER LCX unsuccessful 4.PTCA/stent x 2 to FRANCOIS resolute 2.5 x 8 and synergy 2.5 x 12 5.PTCA/stent x 1 to prox/mid LAD with 3.0x 22 MM FRANCOIS resolute 6.90 minutes concious sedation Surgeon: JUAN PABLO WATERS Anesthesia: other (moderate concious sedation) Estimated Blood Loss: minimal Complications: None Pt Condition Post Procedure: stable Disposition: PACU Indications Chest pain, angina, cad Operative\Procedure Findings 80% proximal to mid LAD with patent mid LAD stents 80% diagonal followed by 90% diagonal stenosis 100% mid LCX with L-L collateral circulation Widely Patent RCA stents proximal to mid with area of aneurysm in the stented region LVEDP 14 No sig by gradient Procedure Description 6 korean radial sheath diagnostic 6 F FL3.5 and FR4, pigtail Intervention: 6 F CLS 3, captain/airline pilot 50, captain/airline pilot 200, Fielder XT, 2.0x 12 mm ballon and 2.5x 12mm balloon Resolute 2.5x 8 mm and synergy 2.5x 12mm Resolute 3.0x 22mm JUAN PABLO WATERS Apr 24, 2017 11:35
[2017-04-24] MEDS ORDERED: GLUCAGON 1 MG INJ IM PRN (12:00)
[2017-04-24] MEDS ORDERED: DEXTROSE 50% 50 ML SYRINGE IV PRN ×2 (12:00)
[2017-04-24] MEDS ORDERED: GLUCOSE GEL 15 GRAM TUBE BUCCAL PRN (12:00)
[2017-04-24] MEDS ORDERED: GLUCOSE GEL 15 GRAM TUBE PO PRN ×2 (12:00)
[2017-04-24] MEDS: SOD CHLORIDE 0.9% 1,000 ML IV SCH ×2 (12:01→23:13)
[2017-04-24] MEDS: INSULIN ASPART [NOVOLOG] 3 ML PEN SC SCH ×3 (12:07→20:07)
--- NOTE | 2017-04-24 20:04 | HP ---
Date/Time of Note Date/Time of Note DATE: 04/24/17 TIME: 20:01 Assessment/Plan VTE Prophylaxis VTE Prophylaxis Intervention: other Lines/Catheters IV Catheter Type (from Nrs): Peripheral IV Assessment/Plan Chief Complaint/Hosp Course A/P S/P CATH AND PCI HX DM HTN HX AICD LOW EF HX PLAN PER CARDIO Problems: HPI/ROS Admit Date/Time Admit Date/Time Apr 24, 2017 at 11:47 Hx of Present Illness s/p cath and pci ROS Constitutional: no complaints Eyes: no complaints ENT: no complaints Respiratory: no complaints Cardiovascular: no complaints Gastrointestinal: no complaints Genitourinary: no complaints Musculoskeletal: no complaints Skin: no complaints Neurologic: no complaints Endocrine: no complaints PMH/Family/Social Past Medical History Medical History: angina, coronary artery disease, diabetes, hypertension, other (s/p aicd placement) Past Surgical History Past Surgical Hx: angioplasty Family History Significant Family History: heart disease, hypertension Social History Smoking Status: Current every day smoker Drug Use: none Exam/Review of Systems Vital Signs Vitals Vital Signs Date Time Temp Pulse Resp B/P Pulse Ox O2 Delivery O2 Flow Rate FiO2 04/24/17 19:26 98.4 62 20 138/80 96 Room Air Exam Constitutional: alert, oriented, well developed Psych: nl mood/affect, no complaints Head: atraumatic, normocephalic Eyes: EOMI, nl conjunctiva, nl lids ENMT: nl external ears & nose, nl lips & teeth, nl nasal mucosa & septum Neck: non-tender, supple Respiratory: clear to auscultation, normal air movement Cardiovascular: nl pulses, regular rate and rhythm Gastrointestinal: nl liver, spleen, non-tender Musculoskeletal: nl extremities to inspection, nl gait and stance Extremities: normal pulses 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 ONCE XX Last administered on 04/24/17t 12:00; Admin Dose 1 EA; Start at 11:30; Stop 04/26/17 at 11:29 Aspirin (Ecotrin) 325 mg DAILY PO ; Start 04/25/17 at 09:00 Clopidogrel Bisulfate (plaVIX) 75 mg DAILY PO ; Start 04/25/17 at 09:00 Acetaminophen (Tylenol Tab) 650 mg Q4H PRN PO NON-CARDIAC PAIN LEVEL 1-3; Start 04/24/17 at 11:30 Oxycodone/ Acetaminophen (Percocet (5/ 325)) 1 tab Q4H PRN PO REPORTED NON- CARDIAC PAIN 4-7; Start 04/24/17 at 11:30 Morphine Sulfate (morphine) 1 mg Q1H PRN IV PAIN NOT RELIEVED BY OTHERS; Start 04/24/17 at 11:30 Al Hydrox/Mg Hydrox/Simethicone (Mag-Al Plus) 30 ml Q4H PRN PO GASTROINTESTINAL UPSET; Start 04/24/17 at 11:30 Ondansetron HCl 4 mg 4 mg Q4H PRN IV NAUSEA AND/OR VOMITING; Start 04/24/17 at 11:30 Sodium Chloride (NS) 1,000 ml @ 75 mls/hr [id number] IV Last administered on t 12:01; Admin Dose 75 MLS/HR; Start 04/24/17 at 11:19; Stop 04/25/17 at 00:38 Miscellaneous Information 1 ea NOTE XX ; Start 04/24/17 at 12:00 Glucose (Glutose) 15 gm Q15M PRN PO DECREASED GLUCOSE; Start 04/24/17 at 12:00 Glucose (Glutose) 22.5 gm Q15M PRN PO DECREASED GLUCOSE; Start 04/24/17 at 12:00 Dextrose (D50w Syringe) 25 ml Q15M PRN IV DECREASED GLUCOSE; Start 04/24/17 at 12:00 Dextrose (D50w Syringe) 50 ml Q15M PRN IV DECREASED GLUCOSE; Start 04/24/17 at 12:00 Glucagon (Glucagen) 1 mg Q15M PRN IM DECREASED GLUCOSE; Start 04/24/17 at 12:00 Glucose (Glutose) 15 gm Q15M PRN BUCCAL DECREASED GLUCOSE; Start 04/24/17 at 12: 00 SAVITA JOEL MD Apr 24, 2017 20:04
[2017-04-24] MEDS: TIOTROPIUM 18 MCG CAPSULE INHA DEV INH SCH (21:49)
[2017-04-24] MEDS: SALMETEROL/FLUTICASONE 250/50 INHA INH SCH (21:49)
[2017-04-25] VITALS (17 sets, daily range): BP systolic 104–159; BP diastolic 77–105; PULSE 58–73; RESP 13–20
[2017-04-25 05:45] LABS: ADD SCAN DIFF NO
[2017-04-25 05:48] LABS: BASOPHILS % 0.6 % (0.0-2.0); EOSINOPHILS # 0.2 10^3/ul (0.0-0.5); EOSINOPHILS % 3.1 % (0.0-7.0); HEMATOCRIT 41.9 % (42.0-52.0); HEMOGLOBIN 14.1 g/dl (14.0-18.0); LYMPHOCYTES # 1.8 10^3/ul (0.8-2.9); LYMPHOCYTES % 26.8 % (15.0-51.0); MEAN CORPUSCULAR HEMOGLOBIN 30.9 pg (29.0-33.0); MEAN CORPUSCULAR HGB CONC 33.7 g/dl (32.0-37.0); MEAN CORPUSCULAR VOLUME 91.7 fl (82.0-101.0); MEAN PLATELET VOLUME 9.4 fl (7.4-10.4); MONOCYTE # 0.6 10^3/ul (0.3-0.9); MONOCYTES % 9.4 % (0.0-11.0); NEUTROPHILS % 59.8 % (39.0-77.0); PLATELET COUNT 239 10^3/UL (140-415); RED BLOOD COUNT 4.57 10^6/ul (4.70-6.10); RED CELL DISTRIBUTION WIDTH 13.9 % (11.5-14.5); WHITE BLOOD COUNT 6.7 10^3/ul (4.8-10.8)
[2017-04-25 06:18] LABS: CALCIUM 9.6 mg/dl (8.4-10.2); CHOL/HDL RATIO 5.5 RATIO; CREATININE 0.84 mg/dl (0.61-1.24); POTASSIUM 4.1 mmol/L (3.5-5.1)
[2017-04-25 06:32] LABS: CK-MB 1.93 ng/ml (0.0-2.4)
[2017-04-25 06:33] LABS: TROPONIN-I 0.298 ng/ml (0.00-0.12)
[2017-04-25] MEDS: INSULIN ASPART [NOVOLOG] 3 ML PEN SC SCH ×2 (07:35→11:30)
[2017-04-25] MEDS: TIOTROPIUM 18 MCG CAPSULE INHA DEV INH SCH (08:12)
[2017-04-25] MEDS: SALMETEROL/FLUTICASONE 250/50 INHA INH SCH (08:12)
[2017-04-25] MEDS ORDERED: ASPIRIN (EC) 325 MG TAB PO SCH (09:00)
[2017-04-25] MEDS ORDERED: ATENOLOL 25 MG TAB PO SCH (09:00)
[2017-04-25] MEDS ORDERED: AMLODIPINE 5 MG TAB PO SCH (09:00)
[2017-04-25] MEDS ORDERED: ASPIRIN 81 MG TAB PO SCH (09:00)
[2017-04-25] MEDS ORDERED: CLOPIDOGREL 75 MG TAB PO SCH ×2 (09:00)
--- NOTE | 2017-04-25 10:35 | CONS ---
Date/Time of Note Date/Time of Note DATE: 04/25/17 TIME: 10:29 Assessment/Plan Assessment/Plan Chief Complaint/Hosp Course IMP: 1.s/pPTCA./stent x 2 diag and x 1 to LAD 2.cardiomyopathy 3.HTN 4. s/p AICD 5. DM 6. HL Recc: -Tele -continue asa/plavix -Continue atenolol -Continue norvasc -Start ACEI -Start statin Problems: Consultation Date/Type/Reason Admit Date/Time Apr 24, 2017 at 11:47 Initial Consult Date 04/24/2017 Type of Consultation: Cardiology Reason for Consultation s/p ptca/stent Referring Provider: SAVITA JOEL MD Exam/Review of Systems Vital Signs Vitals Vital Signs Date Time Temp Pulse Resp B/P Pulse Ox O2 Delivery O2 Flow Rate FiO2 04/25/17 09:00 66 20 96 Room Air 04/25/17 08:00 98.5 144/96 Intake and Output 04/24/17 04/24/17 04/25/17 15:00 23:00 07:00 Intake Total 225 ml 900 ml 600 ml Output Total 1500 ml 850 ml 1900 ml Balance -1275 ml 50 ml -1300 ml Exam Review of Systems: CONSTITUTIONAL: No fevers, chills. PULMONARY: No sob CARDIOVASCULAR: No chest pain/palpitations GASTROINTESTINAL: No nausea/vomiting. GENITOURINARY: No hematuria/dysuria. MUSCULOSKELETAL: No myagias/arthalgias. PSYCHIATRIC: The patient denies depression. NEUROLOGIC: No weakness Constitutional: alert Psych: no complaints Head: normocephalic ENMT: mucosa pink and moist Neck: jvd (8-9 cm water), supple Respiratory: diminished breath sounds (at bases/B) Cardiovascular: regular rate and rhythm Gastrointestinal: non-tender, soft Musculoskeletal: muscle tone (normal) Extremities: edema (none) Neurological: other (No focal deficits) Results Result Diagram: 04/25/17 0520 04/25/17 0520 Results 24 hrs Laboratory Tests Test 04/24/17 12:06 04/24/17 17:10 04/24/17 20:04 04/25/17 05:20 Bedside Glucose 103 101 84 White Blood Count 6.7 Red Blood Count 4.57 L Hemoglobin 14.1 Hematocrit 41.9 L Mean Corpuscular Volume 91.7 Mean Corpuscular Hemoglobin 30.9 Mean Corpuscular Hemoglobin Concent 33.7 Red Cell Distribution Width 13.9 Platelet Count 239 Mean Platelet Volume 9.4 Neutrophils % 59.8 Lymphocytes % 26.8 Monocytes % 9.4 Eosinophils % 3.1 Basophils % 0.6 Nucleated Red Blood Cells % 0.0 Neutrophils # 4.0 Lymphocytes # 1.8 Monocytes # 0.6 Eosinophils # 0.2 Basophils # 0.0 Nucleated Red Blood Cells # 0.0 Sodium Level 136 Potassium Level 4.1 Chloride Level 103 Carbon Dioxide Level 24 Anion Gap 13 # Blood Urea Nitrogen 14 Creatinine 0.84 Glucose Level 111 Calcium Level 9.6 Creatine Kinase 61 Creatine Kinase Index 3.2 Creatinine Kinase MB (Mass) 1.93 Troponin I 0.298 *H Triglycerides Level 179 H Cholesterol Level 156 LDL Cholesterol, Calculated 92 HDL Cholesterol 28 Cholesterol/HDL Ratio 5.5 Test 04/25/17 08:10 Bedside Glucose 117 Medications Medications Current Medications Miscellaneous Information (* Miscellaneous Pharmacy Order) Hold all Metformin ... ONCE XX Last administered on 04/24/17 12:00; Admin Dose 1 EA; Start at 11:30; Stop 04/26/17 at 11:29 Aspirin (Ecotrin) 325 mg DAILY PO Last administered on 04/25/17 08:12; Admin Dose 325 MG; Start 04/25/17 at 09:00 Clopidogrel Bisulfate (plaVIX) 75 mg DAILY PO Last administered on 04/25/17 08: 13; Admin Dose 75 MG; Start 04/25/17 at 09:00 Acetaminophen (Tylenol Tab) 650 mg Q4H PRN PO NON-CARDIAC PAIN LEVEL 1-3; Start 04/24/17 at 11:30 Oxycodone/ Acetaminophen (Percocet (5/ 325)) 1 tab Q4H PRN PO REPORTED NON- CARDIAC PAIN 4-7; Start 04/24/17 at 11:30 Morphine Sulfate (morphine) 1 mg Q1H PRN IV PAIN NOT RELIEVED BY OTHERS; Start 04/24/17 at 11:30 Al Hydrox/Mg Hydrox/Simethicone (Mag-Al Plus) 30 ml Q4H PRN PO GASTROINTESTINAL UPSET; Start 04/24/17 at 11:30 Ondansetron HCl (Zofran Inj) 4 mg Q4H PRN IV NAUSEA AND/OR VOMITING; Start 04/24 at 11:30 Miscellaneous Information 1 ea NOTE XX ; Start 04/24/17 at 12:00 Glucose (Glutose) 15 gm Q15M PRN PO DECREASED GLUCOSE; Start 04/24/17 at 12:00 Glucose (Glutose) 22.5 gm Q15M PRN PO DECREASED GLUCOSE; Start 04/24/17 at 12:00 Dextrose (D50w Syringe) 25 ml Q15M PRN IV DECREASED GLUCOSE; Start 04/24/17 at 12:00 Dextrose (D50w Syringe) 50 ml Q15M PRN IV DECREASED GLUCOSE; Start 04/24/17 at 12:00 Glucagon (Glucagen) 1 mg Q15M PRN IM DECREASED GLUCOSE; Start 04/24/17 at 12:00 Glucose (Glutose) 15 gm Q15M PRN BUCCAL DECREASED GLUCOSE; Start 04/24/17 at 12: 00 Amlodipine Besylate (Norvasc) 5 mg DAILY PO Last administered on 04/25/17 08:13 ; Admin Dose 5 MG; Start 04/25/17 at 09:00 Atenolol (Tenormin) 25 mg DAILY PO Last administered on 04/25/17 08:13; Admin Dose 25 MG; Start 04/25/17 at 09:00 Salmeterol Xinafoate/ Fluticasone (Advair 250/50 Diskus) 1 inh BID INH Last administered on 04/25/17 08:12; Admin Dose 1 INH; Start 04/24/17 at 22:00 Tiotropium [place] (Spiriva) 1 inh BID INH Last administered on 04/25/17 08:12 ; Admin Dose 1 INH; Start 04/24/17 at 22:00 JUAN PABLO WATERS Apr 25, 2017 10:35
[2017-04-25] MEDS ORDERED: BENAZEPRIL 10 MG TAB PO SCH (11:00)
--- NOTE | 2017-04-25 11:10 | RADRPT ---
Vent Rate: 58 bpm RR Interval: 0 msec [place] Interval: 184 msec QRS Duration: 112 msec QT Interval: 464 msec QTC Interval: 455 msec P-R-T [place]: 45 - 77 - 0 degrees Sinus bradycardia Cannot rule out Inferior infarct , age undetermined Anterior infarct , age undetermined ST amp; T wave abnormality, consider lateral ischemia Abnormal ECG Electronically Signed By: Nael Turner [id number]
--- NOTE | 2017-04-25 11:11 | RADRPT ---
Vent Rate: 55 bpm RR Interval: [address] Interval: 188 msec QRS Duration: 112 msec QT Interval: 472 msec QTC Interval: 451 msec P-R-T [place]: 51 - 86 - 0 degrees Sinus bradycardia Cannot rule out Inferior infarct , age undetermined Anterior infarct , age undetermined ST amp; T wave abnormality, consider lateral ischemia Abnormal ECG Electronically Signed By: Nael Turner [id number]
--- NOTE | 2017-04-25 11:12 | RADRPT ---
Vent Rate: 64 bpm RR Interval: 0 msec [place] Interval: 184 msec QRS Duration: 114 msec QT Interval: 428 msec QTC Interval: 441 msec P-R-T [place]: 42 - 71 - 0 degrees Normal sinus rhythm Anterior infarct , age undetermined ST amp; T wave abnormality, consider inferolateral ischemia Abnormal ECG Electronically Signed By: Nael Turner [id number]
--- NOTE | 2017-04-25 13:55 | PDOCDIS ---
Discharge Instructions CONDITION Patient Condition: Stable HOME CARE INSTRUCTIONS: Special Diet: carb controlled ACTIVITY: Activity Restrictions: Slowly Increase Activity FOLLOW UP/APPOINTMENTS Follow-up Plan f/u pcp [address] castellanos 1 wk SAVITA JOEL MD Apr 25, 2017 13:55
[2017-04-25] MEDS ORDERED: BENA10TA48 PO (13:58)
--- NOTE | 2017-04-25 17:05 | PN ---
Date/Time of Note Date/Time of Note DATE: 04/25/17 TIME: 17:05 Assessment/Plan VTE Prophylaxis VTE Prophylaxis Intervention: other Lines/Catheters IV Catheter Type (from Nrs): [place] Assessment/Plan Chief Complaint/Hosp Course A/P S/P CATH AND PCI HX DM HTN HX AICD LOW EF HX PLAN PER CARDIO home Problems: Subjective 24 Hr Interval Summary Gastrointestinal: no complaints Genitourinary: no complaints Exam/Review of Systems Vital Signs Vitals Vital Signs Date Time Temp Pulse Resp B/P Pulse Ox O2 Delivery O2 Flow Rate FiO2 04/25/17 14:00 68 20 116/77 95 Room Air 04/25/17 12:29 98.5 Intake and Output 04/24/17 04/24/17 04/25/17 15:00 23:00 07:00 Intake Total 225 ml 900 ml 600 ml Output Total 1500 ml 850 ml 1900 ml Balance -1275 ml 50 ml -1300 ml Exam Neck: supple Respiratory: clear to auscultation Cardiovascular: regular rate and rhythm Results Result Diagram: 04/25/17 0520 04/25/17 0520 Results 24 hrs Laboratory Tests Test 04/24/17 17:10 04/24/17 20:04 04/25/17 05:20 04/25/17 08:10 Bedside Glucose 101 84 117 White Blood Count 6.7 Red Blood Count 4.57 L Hemoglobin 14.1 Hematocrit 41.9 L Mean Corpuscular Volume 91.7 Mean Corpuscular Hemoglobin 30.9 Mean Corpuscular Hemoglobin Concent 33.7 Red Cell Distribution Width 13.9 Platelet Count 239 Mean Platelet Volume 9.4 Neutrophils % 59.8 Lymphocytes % 26.8 Monocytes % 9.4 Eosinophils % 3.1 Basophils % 0.6 Nucleated Red Blood Cells % 0.0 Neutrophils # 4.0 Lymphocytes # 1.8 Monocytes # 0.6 Eosinophils # 0.2 Basophils # 0.0 Nucleated Red Blood Cells # 0.0 Sodium Level 136 Potassium Level 4.1 Chloride Level 103 Carbon Dioxide Level 24 Anion Gap 13 # Blood Urea Nitrogen 14 Creatinine 0.84 Glucose Level 111 Calcium Level 9.6 Creatine Kinase 61 Creatine Kinase Index 3.2 Creatinine Kinase MB (Mass) 1.93 Troponin I 0.298 *H Triglycerides Level 179 H Cholesterol Level 156 LDL Cholesterol, Calculated 92 HDL Cholesterol 28 Cholesterol/HDL Ratio 5.5 Test 04/25/17 11:40 Bedside Glucose 98 JOEL,SAVITA MD Apr 25, 2017 17:05
--- NOTE | 2017-04-28 13:49 | QN ---
Documentation Comment [id number] SAVITA JOEL MD Apr 28, 2017 13:48
== END 2017-04-25 14:35 | disposition home or self-care (01) ==
LOC: SDS 06:44 → ICU 11:47
PROVIDERS: ADMIT Internal Medicine Nephrology; ATTEND Internal Medicine Nephrology
DX: I25.10 Atherosclerotic heart disease of native coronary artery without angina pectoris (principal); I42.9 Cardiomyopathy, unspecified; I10 Essential (primary) hypertension; E11.9 Type 2 diabetes mellitus without complications; Z95.810 Presence of automatic (implantable) cardiac defibrillator
CPT/HCPCS: 71010; 80048; 80053; 80061; 82465; 82550; 82553; 82962; 84484; 85025; 85610; 85730; 87081; 93005; 93458; C1725; C1769; C1876; C1887; J0583; J1644; J2250; J3010; Q9967; Z7500; Z7610; G0378